=== PATIENT | female | born 1945 | race Caucasian/White ===

== ENCOUNTER → 2018-04-27 14:47 | Outpatient (CLI) | payer MEDICARE, OTHER, SELFPAY ==
--- NOTE | 2018-04-27 14:49 | DI.RAD.S_ITS ---
PROCEDURE: XR FOOT RT MIN 3V INDICATIONS: Right foot pain TECHNIQUE: 3 views of the foot were acquired. COMPARISON: None. FINDINGS: Bones: There may be a minimally displaced fracture through the middle phalanx of the right fourth digit. No other fracture or dislocation. Soft tissues: No tibiotalar joint effusion. Achilles tendon appears normal. IMPRESSION: Questionable minimally displaced fracture through the middle phalanx of the right fourth digit visualized on single view. Dictated by: Korin Ulloa M.D. on 04/27/2018 at 15:18 Approved by: Korin Ulloa M.D. on 04/27/2018 at 15:20
== END ==
PROVIDERS: Visit Provider Physician Assistant
DX: M79.671 Pain in right foot (principal)
CPT/HCPCS: 73630

== ENCOUNTER 2020-08-15 14:29 | Emergency (ER) | payer OTHER, SELFPAY ==
[2020-08-15 14:50] VITALS: BP 143/68; PULSE 61; RESP 15; TEMP 36.2; O2SAT 97; BMI 31.4
--- NOTE | 2020-08-15 15:20 | ED_ITS ---
HPI - General Adult General Chief complaint: Extremity Injury, Lower Stated complaint: r/o blood clots came from the walk in Time Seen by Provider: 08/15/20 14:49 History of Present Illness HPI narrative: 75-year-old woman with a history of hypothyroidism and osteoporosis for which she receives Reclast infusion, most recently 3 weeks ago. She notes that 1 week ago she began having red itchy rash over the anterior ankle/lower anterior shins. Notice slight increase in bilateral lower extremity edema. She has noticed increased overall bilateral swelling in the lower extremities however no shortness of breath, fevers, myalgias, palpitations, orthopnea, abdominal pain, chest pain, dysuria. Related Data Home Medications Medication Instructions Recorded Confirmed liothyronine [Cytomel] 25 mcg PO QDAY #0 08/07/12 04/27/18 levothyroxine 75 mcg capsule 75 mcg PO DAILY 04/27/18 04/27/18 ranitidine HCl PO 04/27/18 04/27/18 Allergies Allergy/AdvReac Type Severity Reaction Status Date / Time No Known Drug Allergies Allergy Unverified 08/15/20 14:11 Review of Systems Review of Systems Narrative: Remainder of complete review of systems is otherwise unremarkable except for that included in the HPI. Patient History Medical History Hypothyroidism (acquired) Osteoporosis Social History Smoking Status: Never smoker Smoking Status: Never smoker Exam Narrative Exam Narrative: General: Healthy appearing, in no acute distress. Able to give a complete and coherent history. Well-nourished well-developed HEENT: Moist mucous membranes, normal sclera with reactive pupils, Respiratory: Lungs are clear to auscultation, no wheezing no rales no rhonchi. Full and symmetrical air movement Cardiac: Regular rate and rhythm no murmurs no bruits Abdomen: Soft, nontender, good bowel tones, no flank pain Skin: Warm and dry, mild lower anterior gao erythema without significant warmth and no skin breakdown. Neurologic: Grossly neurologically intact with no obvious asymmetries or abnormalities Extremities: No trauma, well perfused, bilateral nonpitting edema with no significant calf tenderness Psych: Cooperative, appropriate insight and affect Initial Vital Signs Initial Vital Signs: Vital Signs Temperature 97.2 F L 08/15/20 14:50 Pulse Rate 61 08/15/20 14:50 Respiratory Rate 15 08/15/20 14:50 Blood Pressure 143/68 H 08/15/20 14:50 Pulse Oximetry 97 08/15/20 14:50 Course Orders Ordered: ED Orders 08/15/20 15:48 C-Reactive Protein Quant Stat Complete Blood Count AUTO DIFF Stat Comprehensive Metabolic Panel Stat NT-proBNP (BNP-Adult 18+) Stat 08/15/20 16:02 US periph venous low extrem bi Stat Discontinued Medications Methylprednisolone (Methylprednisolone 125 Mg/2 Ml Vial) 125 mg IV NOW ONE Stop: 08/15/20 17:17 Vital Signs Vital signs: Vital Signs - 8 hr 08/15/20 14:50 08/15/20 17:00 Temperature 97.2 F L Pulse Rate 61 62 Respiratory Rate 15 18 Blood Pressure 143/68 H 152/64 H Pulse Oximetry 97 98 Medical Decision Making Medical Records Medical records reviewed: Yes I reviewed the patient's medical records. Lab Data Lab results reviewed: Yes I reviewed the patient's lab results. Result diagrams: 08/15/20 15:48 08/15/20 15:48 Labs: Lab Results 08/15/20 08/15/20 08/15/20 Range/Units 15:48 15:48 15:48 WBC 4.1 L (4.5-11.0) X10^3/uL RBC 4.00 (4.0-5.2) X10^6/uL Hgb 12.2 (12.0-16.0) g/dL Hct 36.9 (36-46) % MCV 92.2 (80-100) fL MCH 30.4 (26-34) PG MCHC 33.0 (30-36) % RDW 15.2 H (11.6-14.8) % Plt Count 222 (150-400) X10^3/uL Neut % (Auto) 58.4 (50-75) % Lymph % (Auto) 27.4 (25-40) % [place] % (Auto) 9.1 (3-14) % Eos % (Auto) 4.6 H (2-4) % Baso % (Auto) 0.5 (0-2) % Neut # (Auto) 2400 (0252-4792) /uL Lymph # (Auto) 1100 (7452-8095) /uL [place] # (Auto) 400 (0-900) /uL Eos # (Auto) 200 (0-450) /uL Baso # (Auto) 0 (0-100) /uL Sodium 140 (137-145) mmol/L Potassium 3.9 (3.4-5.1) mmol/L Chloride 113 H (98-107) mmol/L Carbon Dioxide 20 L (22-32) mmol/L BUN 16 (7-17) mg/dL Creatinine 0.74 (0.52-1.04) mg/dL Estimated GFR > 60.0 (>60) mL/min BUN/Creatinine Ratio 21.6 (6-22) Glucose 78 L (80-110) mg/dL Calcium 8.8 (8.4-10.2) mg/dL Total Bilirubin 0.4 (0.2-1.3) mg/dL AST 38 H (14-36) IU/L ALT 38 H (<35) IU/L Alkaline Phosphatase 79 (38-126) U/L C-Reactive Protein < 0.5 (<1.0) mg/dL NT-Pro-B Natriuret Pep 649 H (<125) pg/mL Total Protein 6.2 L (6.3-8.2) g/dL Albumin 3.7 (3.5-5.0) g/dL Globulin 2.5 (1.7-4.1) g/dL Albumin/Globulin Ratio 1.5 (1.0-2.8) Imaging Data US - DVT: My Impression: Per tech, negative ultrasound bilaterally MDM Narrative Medical decision making narrative: 75-year-old woman with chronic mild nonpitting lower extremity edema worse over the last week with associated anterior gao erythema and itching. Some mild subcutaneous nodularity appreciated just lateral to the area on the left. This does not appear to be of lymph node nor a thrombosed varicosity. There is no visual changes to the skin. Labs are quite reassuring with no evidence of infection, normal white blood cell count, normal CRP and exam does not look like cellulitis and bilateral cellulitis is extremely rare. There is a bit more swelling and this may be a side effect from the recent Reclast infusion and the dose 3 weeks ago was her first exposure to this med ication. There is no evidence of renal failure, liver failure, heart failure or significant electrolyte abnormalities. At this point, no evidence of life-threatening infection, DVT or other obvious explanation for the slight lower extremity rash that she is experiencing. We discussed options with the patient and her . Apparently she did try Benadryl when it 1st occurred and did find that to be somewhat helpful. Will go ahead and give her a single dose of Solu-Medrol IV before she is discharged in see if this helps alleviate some of the symptoms. Encouraged her to consider compression socks as well as keeping her feet elevated. I think the next step in the workup if this continues to worsen would be a dermatology appointment with biopsy. She is safe for home discharge Discharge Plan Departure Patient Disposition: Home Clinical Impression: Bilateral lower extremity edema Instructions: DI for Adverse Drug Reaction -- Other, DI for Peripheral Edema -- Bilateral Activity Restrictions/Additional Instructions: Thank you for coming in today Your assessment was very reassuring. There is no evidence of infection(cellulitis), blood clots in your lower extremities, kidney failure, liver failure or other underlying inflammatory abnormalities. This is wonderfully reassuring and I suspect that the lower extremity swelling itching and redness at your experience will certainly not be a life-threatening issue however I do not have a full explanation for what it actually is. It may be allergic reaction to the Reclast that you recently received. For that reason I am going to give you a single dose of IV steroids here in the emergency department to see if that makes a difference for you. I would recommend keeping your legs elevated when possible, considering compression stocking (running compression socks are frequently far more comfortable than medical ones) If the problem persists, do consider an appointment with the coater operator for more definitive diagnosis I hope you feel better soon. Prescriptions: No Action levothyroxine 75 mcg capsule 75 mcg PO DAILY RF: 0 ranitidine HCl PO RF: 0 liothyronine [Cytomel] 25 MCG tablet 25 mcg PO QDAY Qty: 0 RF: 0 Referrals: Miscellaneous,Doctor, [Primary Care Provider] -
[2020-08-15 15:59] LABS: Add Manual Diff / Slide Review NO; Basophils Absolute Auto 0 /uL (0-100); Basophils Percent Auto 0.5 % (0-2); Eosinophils Absolute Auto 200 /uL (0-450); Eosinophils Percent Auto 4.6 % (2-4); Hematocrit 36.9 % (36-46); Hemoglobin 12.2 g/dL (12.0-16.0); Lymphocytes Absolute Auto 1100 /uL (1100-4500); Lymphocytes Percent Auto 27.4 % (25-40); Mean Corpuscular Hemoglobin 30.4 PG (26-34); Mean Corpuscular Volume 92.2 fL (80-100); Monocytes Absolute Auto 400 /uL (0-900); Monocytes Percent Auto 9.1 % (3-14); Neutrophils Absolute Auto 2400 /uL (1500-7000); Neutrophils Percent Auto 58.4 % (50-75); Platelet Count 222 X10^3/uL (150-400); Red Cell Distribution Width 15.2 % (11.6-14.8); White Blood Cell Count 4.1 X10^3/uL (4.5-11.0)
--- NOTE | 2020-08-15 16:02 | DI.US.S_ITS ---
PROCEDURE: US PERIPH VENOUS LOW EXTREM BI INDICATIONS: PAIN, EDEMA, ERYTHEMA TECHNIQUE: Real-time imaging, as well as color and pulse Doppler interrogation, were performed of the deep veins of both legs from the inguinal ligament to the popliteal fossa. COMPARISON: None. FINDINGS: Right: The common femoral, femoral and popliteal veins are normally compressible, and free of intraluminal thrombus. Color and pulse Doppler demonstrate normal phasic intravascular flow. There is normal augmentation response to distal compression maneuver. Left: The common femoral, femoral and popliteal veins are normally compressible, and free of intraluminal thrombus. Color and pulse Doppler demonstrate normal phasic intravascular flow. There is normal augmentation response to distal compression maneuver. IMPRESSION: Negative for deep venous thrombosis. Dictated by: Junior Deleon M.D. on 08/15/2020 at 16:05 Approved by: Junior Deleon M.D. on 08/15/2020 at 16:05
[2020-08-15 16:11] LABS: Alanine Aminotransferase 38 IU/L (<35); Albumin 3.7 g/dL (3.5-5.0); Albumin Globulin Ratio 1.5 (1.0-2.8); Alkaline Phosphatase 79 U/L (38-126); Aspartate Aminotransferase 38 IU/L (14-36); BUN Creatinine Ratio 21.6 (6-22); Bilirubin Total 0.4 mg/dL (0.2-1.3); Blood Urea Nitrogen 16 mg/dL (7-17); Calcium 8.8 mg/dL (8.4-10.2); Carbon Dioxide 20 mmol/L (22-32); Chloride 113 mmol/L (98-107); Estimated Glomerular Filt Rate > 60.0 mL/min (>60); Globulin 2.5 g/dL (1.7-4.1); Glucose 78 mg/dL (80-110); HEMOLYSIS < 15 (0-50); Potassium 3.9 mmol/L (3.4-5.1); Sodium 140 mmol/L (137-145); Total Protein 6.2 g/dL (6.3-8.2)
[2020-08-15 16:22] LABS: NT-proBNP (BNP-Adult 18+) 649 pg/mL (<125)
[2020-08-15 16:37] LABS: C-Reactive Protein Quant < 0.5 mg/dL (<1.0)
[2020-08-15 17:00] VITALS: BP 152/64; PULSE 62; RESP 18; O2SAT 98
[2020-08-15] MEDS: methylPREDNISolone 125 MG/2 ML VIAL IV (17:31)
== END 2020-08-15 17:40 | disposition home or self-care (01) ==
PROVIDERS: Emergency Provider Emergency Medicine
DX: R60.0 Localized edema (principal)
CPT/HCPCS: 36415; 80053; 83880; 85025; 86140; 93970; 96374; 99284; J2930

== ENCOUNTER → 2021-03-06 10:50 | Outpatient (CLI) | payer OTHER, SELFPAY ==
--- NOTE | 2021-03-06 10:52 | DI.RAD.S_ITS ---
PROCEDURE: XR RIBS RT MIN 3V W CXR 1V INDICATIONS: fall, R rib pain TECHNIQUE: 2 views of the right ribs were acquired, along with a single view chest. COMPARISON: [facility], CT, CT HEAD/BRAIN WO CON, 03/06/2021, 11:01. [facility], CT, CT CERVICAL SPINE WO CON, 03/06/2021, 11:00. [facility], CR, XR HIP W PEL IF DONE RT 2V, 03/06/2021, 10:50. FINDINGS: Surgical changes and devices: Cholecystectomy clips are seen. Bones and chest wall: A marker is placed upon the area of clinical concern. Within this region, no displaced rib fracture or other significant rib abnormality can be seen. Within the right posterior 9th rib, there is a [id number] rib fracture seen. No suspicious bony lesions. Age-appropriate bony degenerative changes are seen. Mild dextroconvex scoliotic curvature is seen. Overlying soft tissues appear unremarkable. Lungs and pleura: No pleural effusions or pneumothorax. Lungs appear clear. Mediastinum: Mediastinal contours appear normal. Heart size is normal. IMPRESSION: [id number] right 9th rib fracture seen. No associated pneumothorax is seen. Postoperative and degenerative changes are seen. Dictated by: Junior Deleon M.D. on 03/06/2021 at 10:33 Approved by: Junior Deleon M.D. on 03/06/2021 at 10:35
--- NOTE | 2021-03-06 10:52 | DI.RAD.S_ITS ---
PROCEDURE: XR HIP W PEL IF DONE RT 2V INDICATIONS: fall, R hip pain TECHNIQUE: AP pelvis with lateral view(s) of the right hip(s). COMPARISON: [facility], CT, CT HEAD/BRAIN WO CON, 03/06/2021, 11:01. [facility], CT, CT CERVICAL SPINE WO CON, 03/06/2021, 11:00. [facility], CR, XR RIBS RT MIN 3V W CXR 1V, 03/06/2021, 10:50. FINDINGS: Bones: No fractures or dislocations. Pelvic ring appears intact. No suspicious bony lesions. There is mild superior joint space narrowing seen of both hips, with associated remodeling changes with subchondral sclerosis and osteophyte formation. Age-appropriate lower lumbar spine degenerative changes are noted. Soft tissues: The visualized bowel gas pattern is normal. No suspicious soft tissue calcifications. IMPRESSION: No displaced fractures are seen on these plain films. If there is focal tenderness, or other clinical concern for a fracture not seen on these images in this patient with a given history of trauma, please consider a dedicated CT or a short-term followup plain film series (in 1-2 weeks) for further evaluation. Mild bilateral hip degenerative change. Dictated by: Junior Deleon M.D. on 03/06/2021 at 10:35 Approved by: Junior Deleon M.D. on 03/06/2021 at 10:36
--- NOTE | 2021-03-06 10:52 | DI.CT.S_ITS ---
PROCEDURE: CT CERVICAL SPINE WO CON INDICATIONS: fall, head trauma TECHNIQUE: Noncontrast 3 mm thick sections acquired from the skull base to the T4 level. Sagittal and coronal reformats were then constructed. For radiation dose reduction, the following was used: automated exposure control, adjustment of mA and/or kV according to patient size. COMPARISON: None. FINDINGS: Image quality: Excellent. Bones: No fractures or dislocations. Visualized superior ribs are intact. Straightening of the normal lordotic curvature. Severe narrowing of the C4-C5 and C6-C7 disc spaces. Multilevel degenerative endplate sclerosis and spurring. Diffuse facet arthropathy. Trace anterolisthesis of C2 on C3 and trace retrolisthesis of C4 on C5. Soft tissues: There is a trace right apically pneumothorax. This measures approximately 2 mm thickness. IMPRESSION: No acute fracture Trace right apical pneumothorax. Findings (including all critical results) and recommendations were personally telephoned and discussed with Shawna HEALY on 03-06-21 11:34 Dictated by: Boni Kaiser M.D. on 03/06/2021 at 11:17 Approved by: Boni Kaiser M.D. on 03/06/2021 at 11:34
--- NOTE | 2021-03-06 10:52 | DI.CT.S_ITS ---
PROCEDURE: CT HEAD/BRAIN WO CON INDICATIONS: fall, head injury TECHNIQUE: Noncontrast 4.5 mm thick angled axial sections acquired from the foramen magnum to the vertex, with coronal and sagittal reformats. For radiation dose reduction, the following was used: automated exposure control, adjustment of mA and/or kV according to patient size. COMPARISON: None. FINDINGS: Image quality: Excellent. CSF spaces: Basal cisterns are patent. No extra-axial fluid collections. The ventricles are symmetric in size and shape. Brain: No intracranial bleeds or masses. There is cerebral volume loss for age, with resultant ventricular and sulcal prominence. There are periventricular and deep white matter chronic small vessel ischemic changes. There is intracranial internal carotid artery atherosclerosis. Skull and face: Calvarium and visualized facial bones appear intact, without suspicious lesions. Sinuses: Visualized sinuses and mastoids are clear. IMPRESSION: No acute intracranial process. Dictated by: Boni Kaiser M.D. on 03/06/2021 at 11:16 Approved by: Boni Kaiser M.D. on 03/06/2021 at 11:17
== END ==
PROVIDERS: Referring Provider Physician Assistant; Visit Provider Physician Assistant
DX: S22.31XA Fracture of one rib, right side, initial encounter for closed fracture (principal); S09.90XA Unspecified injury of head, initial encounter; R07.81 Pleurodynia; M25.551 Pain in right hip; M47.816 Spondylosis without myelopathy or radiculopathy, lumbar region; W19.XXXA Unspecified fall, initial encounter
CPT/HCPCS: 70450; 71101; 72125; 73502

== ENCOUNTER 2021-03-06 12:25 | Emergency (ER) | payer OTHER, SELFPAY ==
[2021-03-06 13:03] VITALS: BP 133/62; PULSE 58; RESP 16; TEMP 36.7; O2SAT 98; BMI 33.9
--- NOTE | 2021-03-06 13:41 | ED_ITS ---
HPI - Fall General Chief Complaint: Fall Stated Complaint: Rt Rib FX, Sent From [facility] Time Seen by Provider: 03/06/21 13:41 Source: patient and family (spouse) Mode of arrival: Ambulatory Limitations: no limitations History of Present Illness HPI Narrative: This is a 76-year-old female who states on Sunday, March 04 she slipped and fell in the bathroom on a tile. She fell forward and hit her head and then fell onto her right side on the edge of the toilet she had immediate shortness of breath and pain particularly on her right side of her chest. She states the shortness of breath has improved. She continues to have pain on the right side of her chest that is very localized and worsened with movement, deep inhalation, cough or sneeze. Patient does not take any daily anticoagulants. She is on levothyroxine, ranitidine and multivitamins. She denies any other injuries. No neck or back pain. No numbness, tingling or weakness. She is ambulating without issue. She has not had any persistent or severe headaches. No vision changes. No other nausea or vomiting or other GI or urinary symptoms. She was seen at the urgent care/walk-in clinic here locally and found to have a right rib fracture as well as an apical pneumothorax this morning. Patient was given a prescription for pain medication earlier today and took 1 of these. She has a history of bariatric surgery x2, hypothyroidism denies any other major medical issues. She does live remotely on [place] with her . Related Data Home Medications Medication Instructions Recorded Confirmed liothyronine 25 mcg tablet 25 mcg PO QDAY #0 08/07/12 03/06/21 (Cytomel) levothyroxine 75 mcg capsule 75 mcg PO DAILY 04/27/18 03/06/21 ranitidine HCl PO 04/27/18 03/06/21 Previous Rx's Medication Instructions Recorded oxycodone-acetaminophen 5 mg-325 1 tab PO Q4-6H PRN #30 tab 03/06/21 mg tablet (Percocet) Allergies Allergy/AdvReac Type Severity Reaction Status Date / Time No Known Drug Allergies Allergy Unverified 03/06/21 09:49 Review of Systems Review of Systems ROS Unobtainable: All systems reviewed & are unremarkable except as noted in HPI and below Patient History Medical History Hypothyroidism (acquired) Osteoporosis Social History Smoking Status: Never smoker Smoking Status: Never smoker alcohol intake frequency: 0-2 drinks per day Substance Use Type: does not use Exam Narrative Exam Narrative: GEN: well nourished, well appearing female, alert and oriented x 3, patient appears to be in mild distress. HEENT: Atraumatic, pupils are equal round reactive to light, extraocular movemen ts are intact, nares are clear. HEART: Regular rate and rhythm without murmur, clicks, rubs. LUNGS:Lungs clear to auscultation, no wheezes, rales, crackles, chest moves symmetrically, patient has tenderness to the right chest. No subcutaneous emphysema appreciated. ABD:bowel sounds normal, soft, non-tender, no guarding, rebound, rigidity, no masses noted, no hepatosplenomegaly :No CVA tenderness MSCL: Non-tender, no muscle atrophy, muscles strength 5/5 upper and lower extremities, full range of motion, normal gait NEURO:CN 2-12 intact, sensation normal SKIN: No obvious rash, ecchymosis or skin changes noted. Initial Vital Signs Initial Vital Signs: Vital Signs Temperature 98.1 F 03/06/21 13:03 Pulse Rate 58 L 03/06/21 13:03 Respiratory Rate 16 03/06/21 13:03 Blood Pressure 133/62 03/06/21 13:03 Pulse Oximetry 98 03/06/21 13:03 Course Consultations Consultation #1: Dr. Flores with general surgery. Patient images evaluated. Patient has trace apical pneumothorax and is 3 days out from her injury. With no worsening symptoms, no hypoxia or other changes. She does have a single rib fracture. Plan for incentive spirometer pain control which she has she has been prescribed medications in already taken some before arrival to the emergency department. On return precautions. Vital Signs Vital signs: Vital Signs - 8 hr 03/06/21 13:03 Temperature 98.1 F Pulse Rate 58 L Respiratory Rate 16 Blood Pressure 133/62 Pulse Oximetry 98 MDM - Fall Imaging Data CT scan - head: Radiologist's Impression: Kaila De La Vega? 76? F? 1945 ? ?? [address] [address]K Scan ReportSigned Patient: Kaila De La Vega SMR#: [id number]: 1945cct:[id number]/Sex: 76 / FDate of Service: 03/06/21Loc: RADAccession Number: [id number]? ? Procedure: CT head/brain wo con Ordering Provider: Shawna Young P.A-C PROCEDURE:? CT HEAD/BRAIN WO CON ? INDICATIONS:? fall, head injury ? TECHNIQUE:? Noncontrast 4.5 mm thick angled axial sections acquired from the foramen magnum to the vertex, with coronal and sagittal reformats.? For radiation dose reduction, the following was used:? automated exposure control, adjustment of mA and/or kV according to patient size.? ? COMPARISON:? None. ? FINDINGS:? Image quality:? Excellent.? ? CSF spaces:? Basal cisterns are patent.? No extra-axial fluid collections.? The ventricles are symmetric in size and shape.? ? Brain:? No intracranial bleeds or masses.? There is cerebral volume loss for age, with resultant ventricular and sulcal prominence.? There are periventricular and deep white matter chronic small vessel ischemic changes.? There is intracranial internal carotid artery atherosclerosis.? ? Skull and face:? Calvarium and visualized facial bones appear intact, without suspicious lesions.? ? Sinuses:? Visualized sinuses and mastoids are clear.? ? IMPRESSION:? No acute intracranial process. ? Dictated by: Boni Kaiser M.D. on 03/06/2021 at 11:16? ?? Approved by: Boni Kaiser M.D. on 03/06/2021 at 11:17?? CT - cervical spine: Radiologist's Impression: [address] [address] [address] Scan Report Signed Patient: Kaila De La Vega MR#: [id number] : 1945 Acct:[id number] Age/Sex: 76 / F Date of Service: 03/06/21 Loc: RAD Accession Number: [id number] ?? Procedure: CT cervical spine wo con Ordering Provider: Shawna Young P.A-C PROCEDURE:? CT CERVICAL SPINE WO CON ? INDICATIONS:? fall, head trauma ? TECHNIQUE:? Noncontrast 3 mm thick sections acquired from the skull base to the T4 level.? Sagittal and coronal reformats were then constructed.? For radiation dose reduction, the following was used:? automated exposure control, adjustment of mA and/or kV according to patient size.? ? COMPARISON:? None. ? FINDINGS:? Image quality:? Excellent.? ? Bones:? No fractures or dislocations.? Visualized superior ribs are intact.? Straightening of the normal lordotic curvature.? Severe narrowing of the C4-C5 and C6-C7 disc spaces. Multilevel degenerative endplate sclerosis and spurring.? Diffuse facet arthropathy.? Trace anterolisthesis of C2 on C3 and trace retrolisthesis of C4 on C5. ? Soft tissues:? There is a trace right apically pneumothorax.? This measures approximately 2 mm thickness. ? ? IMPRESSION:? No acute fracture ? Trace right apical pneumothorax. ? Findings (including all critical results) and recommendations were personally telephoned and discussed with Shawna HEALY on 03-06-21 11:34 ? ? ? Dictated by: Boni Kaiser M.D. on 03/06/2021 at 11:17 ? ? Approved by: Boni Kaiser M.D. on 03/06/2021 at 11:34?? Hip xray: Radiologist's Impression: Kaila De La Vega??76??F??1945 ? Allergy/Adv: No Known Drug Allergies Close Ribs X-Ray (Signed) Junior Deleon - 03/06/21 Hip X-Ray (Signed) Junior Deleon - 03/06/[address] (Signed) Boni Kaiser - 03/06/[address] (Signed) Boni Kaiser - 03/06/21 Vascular Ultrasound (Signed) Junior Deleon - 08/15/20 Foot X-Ray (Signed) Korin Ulloa - 04/27/18 Launch?[address] [address] XRay Report Signed Patient: Kaila De La Vega MR#: [id number] : 1945 Acct:[id number] Age/Sex: 76 / F Date of Service: 03/06/21 Loc: [facility] Accession Number: [id number] ?? Procedure: XR hip w pel if done RT 2V Ordering Provider: Shawna Young P.A-C PROCEDURE:? XR HIP W PEL IF DONE RT 2V ? INDICATIONS:? fall, R hip pain ? TECHNIQUE:? AP pelvis with lateral view(s) of the right hip(s).? ? COMPARISON:? [facility], CT, CT HEAD/BRAIN WO CON, 03/06/2021, 11:01.? [facility], CT, CT CERVICAL SPINE WO CON, 03/06/2021, 11:00.? [facility], CR, XR RIBS RT MIN 3V W CXR 1V, 03/06/2021, 10:50. ? FINDINGS:? ? Bones:? No fractures or dislocations.? Pelvic ring appears intact.? No suspicious bony lesions.? ? There is mild superior joint space narrowing seen of both hips, with associated remodeling changes with subchondral sclerosis and osteophyte formation.? Age- appropriate lower lumbar spine degenerative changes are noted. ? Soft tissues:? The visualized bowel gas pattern is normal.? No suspicious soft tissue calcifications.? ? ? IMPRESSION:? ? No displaced fractures are seen on these plain films.? ? If there is focal tenderness, or other clinical concern for a fracture not seen on these images in this patient with a given history of trauma, please consider a dedicated CT or a short-term followup plain film series (in 1-2 weeks) for further evaluation.? ? Mild bilateral hip degenerative change. ? ? ? Dictated by: Junior Deleon M.D. on 03/06/2021 at 10:35 ? ? Approved by: Junior Deleon M.D. on 03/06/2021 at 10:36?? Rib xray: Radiologist's Impression: Kaila De La Vega??76??F??1945 ? Allergy/Adv: No Known Drug Allergies Close Ribs X-Ray (Signed) Junior Deleon - 03/06/21 Hip X-Ray (Signed) Junior Deleon - 03/06/[address] (Signed) Boni Kaiser - 03/06/[address] (Signed) Boni Kaiser - 03/06/21 Vascular Ultrasound (Signed) Junior Deleon - 08/15/20 Foot X-Ray (Signed) Korin Ulloa - 04/27/18 Launch?Image [address] [address] XRay Report Signed Patient: Kaila De La Vega MR#: [id number] : 1945 Acct:[id number] Age/Sex: 76 / F Date of Service: 03/06/21 Loc: RAD Accession Number: [id number] ?? Procedure: XR ribs RT min 3V w CXR1V Ordering Provider: Shawna Young P.A-C PROCEDURE:? XR RIBS RT MIN 3V W CXR 1V ? INDICATIONS:? fall, R rib pain ? TECHNIQUE:? 2 views of the right ribs were acquired, along with a single view chest.? ? COMPARISON:? [facility], CT, CT HEAD/BRAIN WO CON, 03/06/2021, 11:01.? [facility], CT, CT CERVICAL SPINE WO CON, 03/06/2021, 11:00.? [facility], CR, XR HIP W PEL IF DONE RT 2V, 03/06/2021, 10:50. ? FINDINGS:? ? Surgical changes and devices:? Cholecystectomy clips are seen.? ? Bones and chest wall:? A marker is placed upon the area of clinical concern.? Within this region, no displaced rib fracture or other significant rib abnormality can be seen.? Within the right posterior 9th rib, there is a [id number] rib fracture seen.? No suspicious bony lesions.? Age-appropriate bony degenerative changes are seen.? Mild dextroconvex scoliotic curvature is seen. ? Overlying soft tissues appear unremarkable.? ? Lungs and pleura:? No pleural effusions or pneumothorax.? Lungs appear clear.? ? Mediastinum:? Mediastinal contours appear normal.? Heart size is normal.? IMPRESSION:? [id number] right 9th rib fracture seen. ? No associated pneumothorax is seen. ? Postoperative and degenerative changes are seen.? ? ? Dictated by: Junior Deleon M.D. on 03/06/2021 at 10:33 ? ? Approved by: Junior Deleon M.D. on 03/06/2021 at 10:35?? MDM Narrative Medical decision making narrative: This is a 76-year-old female with a trace apical pneumothorax caught and C-spine CT not noted on her rib series. She also has right rib fracture. Patient is tolerating well she is not having any issue with oxygenation in this occurred on Sunday and today is Sunday. Discussed with General surgery, Dr. Flores. Recommendations are included above. Patient is tolerating here while in department and would prefer to return home. [place] for has been another night locally. That is not felt that she has required inpatient observation overnight. Patient feels comfortable with this plan but will likely return home to [place]. Discharge Plan Departure Patient Disposition: Home Clinical Impression: Closed rib fracture, Pneumothorax Activity Restrictions/Additional Instructions: Follow-up with your physician for recheck. You have a rib fracture on the right side and noted to have a very small (trace apical) pneumothorax that was noted on your CT C-spine CT scan and was not actually seen on your chest x-ray today. Use incentive spirometer once hourly while awake. Continue to use a small you have chest pain from your rib fracture. This device helps prevent pneumonia and infections in her lungs so that you take good breaths. You may continue take pain medication as prescribed. Please return for lightheadedness, worsening chest pain, shortness of breath, lightheadedness or passing out, nausea or vomiting or other new or concerning symptoms. Prescriptions: No Action levothyroxine 75 mcg capsule 75 mcg PO DAILY 0RF ranitidine HCl PO 0RF oxycodone-acetaminophen [Percocet] 5-325 mg tablet 1 tab PO Q4-6H PRN (Reason: pain) Qty: 30 0RF liothyronine [Cytomel] 25 MCG tablet 25 mcg PO QDAY Qty: 0 0RF Referrals: Michael Bradford MD [Primary Care Provider] -
== END 2021-03-06 14:44 | disposition home or self-care (01) ==
PROVIDERS: Emergency Provider Emergency Medicine; PCP Specialist
DX: S22.31XA Fracture of one rib, right side, initial encounter for closed fracture (principal); J93.9 Pneumothorax, unspecified; W18.30XA Fall on same level, unspecified, initial encounter; Y92.002 Bathroom of unspecified non-institutional (private) residence as the place of occurrence of the external cause; S09.90XA Unspecified injury of head, initial encounter; R07.81 Pleurodynia; M25.551 Pain in right hip; M47.816 Spondylosis without myelopathy or radiculopathy, lumbar region
CPT/HCPCS: 70450; 71101; 72125; 73502; 99281; 99282

== ENCOUNTER → 2021-03-08 11:35 | Outpatient (CLI) | payer OTHER, SELFPAY | PROVIDERS: PCP Specialist; Visit Provider Physician Assistant | DX: Z91.89 Other specified personal risk factors, not elsewhere classified (principal) | CPT/HCPCS: 87077; 87086; 87186 ==

== ENCOUNTER → 2021-03-18 09:13 | Outpatient (CLI) | payer OTHER, SELFPAY ==
[2021-03-18 09:42] LABS: BUN Creatinine Ratio 23.2 (6-22); Blood Urea Nitrogen 22 mg/dL (7-17); Calcium 8.5 mg/dL (8.4-10.2); Carbon Dioxide 27 mmol/L (22-32); Chloride 108 mmol/L (98-107); Estimated Glomerular Filt Rate 57.3 mL/min (>60); Glucose 83 mg/dL (80-110); HEMOLYSIS < 15 (0-50); Potassium 4.2 mmol/L (3.4-5.1); Sodium 141 mmol/L (137-145)
[2021-03-18 09:51] LABS: NT-proBNP (BNP-Adult 18+) 168 pg/mL (<450)
== END ==
PROVIDERS: PCP Specialist; Referring Provider Physician Assistant; Visit Provider Physician Assistant
DX: R60.0 Localized edema (principal)
CPT/HCPCS: 36415; 80048; 83880

== ENCOUNTER → 2022-05-22 08:59 | Outpatient (CLI) | payer OTHER, SELFPAY | PROVIDERS: PCP Specialist; Visit Provider Nurse Practitioner Family | DX: R30.0 Dysuria (principal) | CPT/HCPCS: 87077; 87086; 87186 ==